=== PATIENT | male | born 1960 | race Hispanic/Latino ===

== ENCOUNTER → 2025-01-31 | Outpatient (REF) | payer BC ==
[~2025-01-31] MED LIST: CHOLESTEROL; REGADENOSON 0.4 MG/5 ML SYR IV ONE
== END ==
LOC: NM 12:53
PROVIDERS: ATTEND Internal Medicine Cardiovascular Disease
DX: I25.10 Atherosclerotic heart disease of native coronary artery without angina pectoris (principal); I25.2 Old myocardial infarction
CPT/HCPCS: 78452; 93017; A9502; J2785